=== PATIENT | female | born 1960 | race Caucasian/White ===

== ENCOUNTER 2019-05-27 14:59 | Emergency (ER) | payer MEDICAID ==
[~2019-05-27] VITALS: Ht 170.2 cm; Wt 77.5 kg
[2019-05-27 15:01] VITALS: BP 153/76
[2019-05-27] MEDS ORDERED: PRED10TA PO (15:50)
== END 2019-05-27 16:15 | disposition home or self-care (01) ==
LOC: ER 14:59
DX: L25.9 Unspecified contact dermatitis, unspecified cause (principal); G35 Multiple sclerosis; Z88.0 Allergy status to penicillin; Z79.899 Other long term (current) drug therapy
CPT/HCPCS: 99283